=== PATIENT | female | born 1995 | race African-American/Black ===

== ENCOUNTER 2017-07-12 02:26 | Emergency (ER) | payer OTHER ==
[~2017-07-12] VITALS: Ht 165.1 cm; Wt 55.6 kg
[~2017-07-12 02:26] MED LIST: ZTHM250 PO
[2017-07-12 02:31] VITALS: TEMP 36.7; Ht 165.1 cm; Wt 55.6 kg
[2017-07-12 03:03] VITALS: BP 121/69; PULSE 91; O2SAT 98
--- NOTE | 2017-07-12 04:30 | EMERGENCY ROOM VISIT NOTE ---
ED Visit Note First contact with patient: 02:39 CHIEF COMPLAINT: Right heel injury HISTORY OF PRESENT ILLNESS: This 22-year-old patient presents to the emergency department with friend after cutting the right heel on a piece of glass while walking. The bleeding has stopped. Denies weakness or numbness of the extremity. patient has full range of motion of the extremity The patient rates the pain as mild and 2/10. The patient denies any other injuries. The patient' s tetanus shot is up to date. Patient is concerned there might be foreign body in the cut. REVIEW OF SYSTEMS: A 6 system review of systems was completed with positives and pertinent negatives listed in the HPI. ALLERGIES: None MEDICATIONS: None PMH: None SOCIAL HISTORY: No drug use PHYSICAL EXAM: Vital Signs: Reviewed Nurse's notes, vital signs stable. GENERAL : Pleasant female, in no acute distress, well developed, well nourished. SKIN: There is a 1 cm superficial abrasion to the right heel with no foreign bodies visualized . The edges do not gape apart with traction. There is no foreign material in the wound and it looks clean. There is minimal bleeding. No deep structures such as tendons, bones, or significant blood vessels are seen in the base of the wound. Extension and flexion of the extremity is full and strong. Full range of motion of the extremity. Capillary refill less than 2 seconds. Normal sensation to light and sharp touch. EMERGENCY DEPARTMENT COURSE: I examined the patient. There is cleansed and there is no foreign bodies visualized. Wound care was done by nursing. Patient was counseled on signs and symptoms of infection. They verbalized understanding this. The patient was discharged home in good condition. Differential diagnosis includes abrasion, foreign body, laceration, tendon injury, vascular injury and other etiologies were considered. DIAGNOSIS right heel abrasion DISCHARGE INSTRUCTIONS & TREATMENT: As below Problem List Medical Problems: (1) UTI (urinary tract infection) Status: Chronic Current/Historical Medications No Active Prescriptions or Reported Meds Allergies Coded Allergies: No Known Allergies (Unverified , 07/12/17) Vital Signs Date Time Temp Pulse Resp B/P (MAP) Pulse Ox O2 Delivery O2 Flow Rate FiO2 07/12/17 03:03 91 16 121/69 98 07/12/17 02:31 36.7 106 16 116/72 97 Room Air Departure Information Impression Primary Impression: Heel abrasion Dispostion Home / Self-Care Condition GOOD Prescriptions No Active Prescriptions or Reported Meds Forms WORK / SCHOOL INSTRUCTIONS, HOME CARE DOCUMENTATION FORM, IMPORTANT VISIT INFORMATION Patient Instructions My [facility], ED Abrasion Additional Instructions Antibiotic ointment and bandage to the areas until healed. Follow up with family doctor or return for any signs of infection (increasing redness, swelling , drainage, or fever). Keep covered when in sun until fully healed then SPF 50 or higher until scar healed.
== END 2017-07-12 03:03 | disposition home or self-care (01) ==
LOC: C.EDB 02:27
DX: S90.811A Abrasion, right foot, initial encounter (principal); W25.XXXA Contact with sharp glass, initial encounter

== ENCOUNTER 2018-02-07 09:15 | Emergency (ER) | payer OTHER ==
[~2018-02-07] VITALS: Ht 165.1 cm; Wt 66.3 kg
[2018-02-07 09:20] VITALS: TEMP 37.4; Ht 165.1 cm; Wt 66.3 kg
[2018-02-07] MEDS ORDERED: METRONIDAZOLE 250 MG TAB PO STA (11:11)
[2018-02-07] MEDS ORDERED: CEFTRIAXONE SOD 350MG/ML 1 GM VIAL IM STA (11:11)
[2018-02-07] MEDS ORDERED: FLUCONAZOLE 50 MG TAB PO ONE (11:15)
[2018-02-07] MEDS ORDERED: DOXY100C PO (11:15)
[2018-02-07] MEDS ORDERED: METR-162 PO (11:15)
[2018-02-07] MEDS ORDERED: DOXYCYCLINE HYCLATE 100 MG CAP PO ONE (11:15)
[2018-02-07 11:49] VITALS: BP 115/64; PULSE 89; O2SAT 100
--- NOTE | 2018-02-07 16:38 | EMERGENCY ROOM VISIT NOTE ---
History Report prepared by Scribe: Joi Chavez Under the Supervision of: Wicho MatthewsO. First contact with patient: 09:23 Chief Complaint: VAGINAL DISCHARGE Stated Complaint: VAGINAL SYMPTOMS, THIN WATERY DISCHARGE/IRRITATION History of Present Illness The patient is a 23 year old female who presents to the Emergency Room with complaints of persistent abnormal vaginal discharge for the past 4 days. 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 The discharge is "concepcion" in color and " thin and watery". She states her vaginal area feels "irritated". The patient is sexually active with a single partner. She denies any prior history of STD's. She has experienced no pain with intercourse. She notes she was placed on Pyridium and an antibiotic recently for a UTI, and has completed both medications. She has nor chronic medical problems. The patient denies any headache, change in vision, fevers, chest pain, shortness of breath, abdominal pain, nausea, vomiting, diarrhea, pain with urination, rashes, and melena. 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 A total of 10 systems reviewed and were otherwise negative. Past Medical & Surgical Medical Problems: (1) UTI (urinary tract infection) Family History FH: myocardial infarction FATHER Hypertension Patient's father is Social History Smoking Status: Never Smoker Alcohol Use: none Drug Use: none Marital Status: single Housing Status: lives with roommate Occupation Status: [employer] student Current/Historical Medications Scheduled Doxycycline Hyclate (Vibramycin), 100 MG PO BID Metronidazole (Flagyl), 500 MG PO BID Allergies Coded Allergies: No Known Allergies (Unverified , 07/12/17) Physical Exam Vital Signs Date Time Temp Pulse Resp B/P (MAP) Pulse Ox O2 Delivery O2 Flow Rate FiO2 02/07/18 11:49 89 16 115/64 100 Room Air 02/07/18 09:20 37.4 88 18 131/73 99 Room Air Physical Exam GENERAL: Sitting up in bed, alert, well appearing, well nourished, no distress, non-toxic EYE EXAM: normal conjunctiva. OROPHARYNX: no exudate, no erythema, lips, buccal mucosa, and tongue normal and mucous membranes are moist NECK: supple, no nuchal rigidity, no adenopathy, non-tender LUNGS: Clear to auscultation. Normal chest wall mechanics HEART: no murmurs, S1 normal and S2 normal ABDOMEN: abdomen soft, non-tender, normo-active bowel sounds, no masses, no rebound or guarding. : Normal vaginal mucosa, with a thick white, foul smelling discharge, normal external female genitalia. UPPER EXTREMITIES: upper extremities are grossly normal. LOWER EXTREMITIES: No pitting edema. NEURO EXAM: Normal sensorium, cranial nerves II-XII grossly intact, normal speech, no gross weakness of arms, no gross weakness of legs. Gross sensation intact. Medical Decision & Procedures Laboratory Results Test 02/07/18 09:35 02/07/18 10:17 Urine Color YELLOW Urine Appearance CLOUDY (CLEAR) Urine pH 6.0 (4.5-7.5) Urine Specific Stanley 1.022 (1.000-1.030) Urine Protein NEG (NEG) Urine Glucose (UA) NEG (NEG) Urine Ketones NEG (NEG) Urine Occult Blood NEG (NEG) Urine Nitrite NEG (NEG) Urine Bilirubin NEG (NEG) Urine Urobilinogen NEG (NEG) Urine Leukocyte Esterase NEG (NEG) Urine WBC (Auto) 1-5 /hpf (0-5) Urine RBC (Auto) 0-4 /hpf (0-4) Urine Hyaline Casts (Auto) 1-5 /lpf (0-5) Urine Epithelial Cells (Auto) >30 /lpf (0-5) Urine Bacteria (Auto) NEG (NEG) Urine Test NEG (NEG) Date/Time Source Procedure Growth Status 02/07/18 10:17 Cervix Brushings Trichomonas Preparation - Final Complete Laboratory results per my review. Medications Administered Medications (Trade) Dose Ordered Sig/Marcos Route Start Time Stop Time Status Last Admin Dose Admin Ceftriaxone Sodium (Rocephin Im) 250 mg NOW STAT IM 02/07/18 11:11 02/07/18 11:14 DC 02/07/18 11:42 250 MG Doxycycline Hyclate (Vibramycin Cap) 100 mg ONE ONCE PO 02/07/18 11:15 02/07/18 11:16 DC 02/07/18 11:40 100 MG Metronidazole (Flagyl Tab) 500 mg NOW STAT PO 02/07/18 11:11 02/07/18 11:14 DC 02/07/18 11:40 500 MG Fluconazole (Diflucan Tab) 150 mg NOW ONCE PO 02/07/18 11:15 02/07/18 11:16 DC 02/07/18 11:41 150 MG ED Course ED COURSE: Vital signs were reviewed and showed normal vitals The patients medical record was reviewed The above diagnostic studies were performed and reviewed. ED treatments and interventions as stated above. 0926: The patient was evaluated in room B4B. A complete history and physical examination was performed. 1111: Flagyl 500 mg PO, Rocephin 250 mg IM. 1115: Diflucan 150 mg PO, Vibramycin 100 mg PO. 1120: Upon reevaluation, the patient is is feeling well and is ready to go home. I discussed my findings with the patient and she understands and agrees with the treatment plan. Based on the patients age, coexisting illnesses, exam and lab findings the decision to treat as an outpatient was made. The patient remained stable while under my care. The patient appeared well at the time of discharge. Medical Decision Differential diagnoses includes but is not limited to appendicitis, diverticulitis, small bowel obstruction, malignancy, hernia, urinary tract infection, torsion, and ectopic (if female), perforation, trauma, infectious. Patient is a 23-year-old female who presents to ER for vaginal discharge started after menstrual period several days ago. She does admit to some intermittent itching. Patient has no other complaints. No abdominal pain. No fevers. Vitals are stable. UA was unremarkable. was negative. Patient had a large amount of thick white vaginal discharge was consequently placed on Flagyl, Rocephin and doxycycline. Trichomonas was negative. She did have clue cells. No signs of peritonitis. Nothing to suggest abscess. Patient was updated at bedside and she was discharged to follow-up with PCP as an outpatient. Discussed with Pt concerning signs and symptoms to watch out for. Pt was instructed to follow up with their PCP and discussed with the patient their option to return to the ED at anytime for persistent or worsening symptoms. The appropriate anticipatory guidance and out-patient management, including indications for return to the emergency department, were explained at length to the patient and understood. Medication Reconcilliation Current Medication List: was personally reviewed by me Blood Pressure Screening Patient's blood pressure: Normal blood pressure Blood pressure disposition: Did not require urgent referral Impression Primary Impression: Bacterial vaginosis Additional Impression: STD (female) Scribe Attestation The scribe's documentation has been prepared under my direction and personally reviewed by me in its entirety. I confirm that the note above accurately reflects all work, treatment, procedures, and medical decision making performed by me. Departure Information Dispostion Home / Self-Care Prescriptions Metronidazole (FLAGYL) 500 Mg Tab 500 MG PO BID, #20 TAB Prov: Kaiden Jason, DO 02/07/18 Doxycycline Hyclate (VIBRAMYCIN) 100 Mg Cap 100 MG PO BID for 10 Days, CAP Prov: Kaiden Jason, DO 02/07/18 Referrals No Doctor, Assigned (PCP) Patient Instructions ED Vaginosis Bacterial, My [facility], STD Poss Additional Instructions Please follow up with your primary care doctor with in the next 24 hours. Any worsening of your symptoms, please return to the ED immediately. This includes any fevers greater than 100.4, worsening pain, chest pain, shortness breath, persistent nausea, vomiting, unable to eat or drink, or any other concerning signs or symptoms from your standpoint. Please take the antibiotics as prescribed. Please refrain from drinking alcohol while taking Flagyl and doxycycline. Please try to refrain from being in the sunlight as well. Please take these medications while eating. Problem Qualifiers
== END 2018-02-07 12:00 | disposition home or self-care (01) ==
LOC: C.EDB 09:17
DX: N76.0 Acute vaginitis (principal); A64 Unspecified sexually transmitted disease; Z87.440 Personal history of urinary (tract) infections; Z82.49 Family history of ischemic heart disease and other diseases of the circulatory system